=== PATIENT | male | born 1990 | race American Indian/Alaskan Native ===

== ENCOUNTER 2019-02-17 09:45 | Emergency (ER) | payer SELFPAY ==
[2019-02-17] MEDS ORDERED: dexAMETHasone 20 MG/5 ML VIAL IM ONE (12:39)
[2019-02-17] MEDS ORDERED: amLODIPine 5 MG TAB PO ONE (12:39)
[2019-02-17] MEDS ORDERED: KETOROLAC 60 MG/2 ML INJ IM ONE (12:39)
--- NOTE | 2019-02-17 12:47 | Emergency Department Report ---
ED Back Pain/Injury HPI - General Chief Complaint: Back Pain/Injury Stated Complaint: LOWER BACK PAIN Time Seen by Provider: 02/17/19 12:29 Source: patient Limitations: No Limitations - History of Present Illness Initial Comments: patient is a 28-year-old male presents emergency room with complaints of left lower back pain that began 2 nights ago. He states that he has been having back spasms. He denies any fall or injury. He denies any numbness, weakness, bowel or bladder incontinence, fever, vomiting. 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 He states that he used ibuprofen and ice pack with some relief. Patient states he has had back pain like this in the past. He states he has a past medical history of hypertension and hypothyroid. He denies any allergies medications. He states that he has not taken his medications in approximately 6 months. He states that he previously took lisinopril and hydrochlorothiazide but does not know the doses and states that he also took levothyroxine but does not know the dose of that either. - Related Data Previous Rx's Medication Instructions Recorded Last Taken Type Cyclobenzaprine [Flexeril] 10 mg PO QHS PRN #12 tablet 02/17/19 Unknown Rx Naproxen [EC-Naprosyn] 500 mg PO BID PRN #14 tablet. 02/17/19 Unknown Rx amLODIPine 10 mg PO DAILY #30 tab 02/17/19 Unknown Rx Allergies Allergy/AdvReac Type Severity Reaction Status Date / Time No Known Allergies Allergy Unverified 02/17/19 09:49 ED Review of Systems ROS: Stated complaint: LOWER BACK PAIN Other details as noted in HPI Comment: All other systems reviewed and negative ED Past Medical Hx - Past Medical History Previous Medical History?: Yes Additional medical history: Back pain - Surgical History Past Surgical History?: No - Social History Smoking Status: Never Smoker Substance Use Type: Alcohol - Medications Home Medications: Home Medications Medication Instructions Recorded Confirmed Last Taken Type Cyclobenzaprine [Flexeril] 10 mg PO QHS PRN #12 tablet 02/17/19 Unknown Rx Naproxen [EC-Naprosyn] 500 mg PO BID PRN #14 tablet. 02/17/19 Unknown Rx amLODIPine 10 mg PO DAILY #30 tab 02/17/19 Unknown Rx ED Physical Exam - General Limitations: No Limitations General appearance: alert, in no apparent distress - Head Head exam: Present: atraumatic, normocephalic - Eye Eye exam: Present: normal appearance - ENT ENT exam: Present: mucous membranes moist - Neck Neck exam: Present: normal inspection, full ROM. Absent: tenderness - Respiratory Respiratory exam: Present: normal lung sounds bilaterally. Absent: respiratory distress, wheezes, rales, rhonchi, stridor, chest wall tenderness, accessory mu scle use, decreased breath sounds, prolonged expiratory - Cardiovascular Cardiovascular Exam: Present: regular rate, normal rhythm, normal heart sounds. Absent: systolic murmur, diastolic murmur, rubs, gallop - Back Exam Back exam: Present: normal inspection, full ROM, paraspinal tenderness (left sided lumbar paraspinal muscular TTP, no mildine C-spine, T-spine or L-spine tenderness, no step offs, no deformities). Absent: vertebral tenderness - Neurological Exam Neurological exam: Present: alert, oriented X3, normal gait, other (equal honeycomb decapper strength, 5/5 strength in the BUE/BLE, sensation intact throughout, no focal neuro deficit). Absent: motor sensory deficit - Psychiatric Psychiatric exam: Present: normal affect, normal mood - Skin Skin exam: Present: warm, dry, intact ED Course Vital Signs 02/17/19 02/17/19 02/17/19 09:50 12:25 12:51 Temperature 97.9 F Pulse Rate 94 H 80 Respiratory 20 18 Rate Blood Pressure 178/117 149/106 Blood Pressure [Left] O2 Sat by Pulse 95 Oximetry 02/17/19 13:46 Temperature 98.0 F Pulse Rate 74 Respiratory 16 Rate Blood Pressure Blood Pressure 168/90 [Left] O2 Sat by Pulse 98 Oximetry ED Medical Decision Making - Lab Data Vital Signs 02/17/19 02/17/19 02/17/19 09:50 12:25 12:51 Temperature 97.9 F Pulse Rate 94 H 80 Respiratory 20 18 Rate Blood Pressure 178/117 149/106 Blood Pressure [Left] O2 Sat by Pulse 95 Oximetry 02/17/19 13:46 Temperature 98.0 F Pulse Rate 74 Respiratory 16 Rate Blood Pressure Blood Pressure 168/90 [Left] O2 Sat by Pulse 98 Oximetry - Medical Decision Making patient is a 28-year-old male presents emergency room with complaints of left lower back pain that began 2 nights ago. He states that he has been having back spasms. He denies any fall or injury. He denies any numbness, weakness, bowel or bladder incontinence, fever, vomiting. 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 He states that he used ibuprofen and ice pack with some relief. Patient states he has had back pain like this in the past. He states he has a past medical history of hypertension and hypothyroid. He denies any allergies medications. He states that he has not taken his medications in approximately 6 months. He states that he previously took lisinopril and hydrochlorothiazide but does not know the doses and states that he also took levothyroxine but does not know the dose of that either. vitals with elevated BP which improved upon amlodipine administration. on exam: left sided lumbar paraspinal muscular TTP, no mildine C-spine, T-spine or L-spine tenderness, no step offs, no deformities, no neuro deficits. Examination consistent with low back strain. Patient has no red flag warning signs of back pain including no trauma, no unexplained weight loss, no neuro deficits, age is not greater than 50, no fever, no IVDU, no steroid use, no hx of cancer. Patient given steroid injection and Toradol injection. Patient given 10 mg of amlodipine by mouth for his blood pressure. pt given prescription for naproxen, Flexeril, amlodipine. Advised patient to please take medication as prescribed. Do not drive or operate heavy machinery while taking muscle relaxer. May use ice pack, heating pad, rest, epsom salt bath. Follow-up with a primary care doctor in next 2-3 days. Please take your blood pressure 3 times a day and keep a blood pressure log and take this to the primary care doctor. Increase your water intake, eat a low-sodium diet, Incorporate daily exercise. Please have a full thyroid panel function done by a primary care physician to see if you need medication. Return to the emergency room for any new or worsening symptoms. - Differential Diagnosis strain, sprain, DDD, bulging disc, sciatica, piriformis syndrome Critical care attestation.: If time is entered above; I have spent that time in minutes in the direct care of this critically ill patient, excluding procedure time. ED Disposition Clinical Impression: Low back strain Qualifiers: Encounter type: initial encounter Qualified Code(s): S39.012A - Strain of muscle, fascia and tendon of lower back, initial encounter Hypertension Qualifiers: Hypertension type: essential hypertension Qualified Code(s): I10 - Essential (primary) hypertension Disposition: TO HOME OR SELFCARE Is pt being admited?: No Does the pt Need Aspirin: No Condition: Stable Instructions: Muscle Strain (ED), Hypertension (ED) Additional Instructions: please take medication as prescribed. Do not drive or operate heavy machinery while taking muscle relaxer. May use ice pack, heating pad, rest, epsom salt bath. Follow-up with a primary care doctor in next 2-3 days. Please take your blood pressure 3 times a day and keep a blood pressure log and take this to the primary care doctor. Increase your water intake, eat a low-sodium diet, Incorporate daily exercise. Please have a full thyroid panel function done by a primary care physician to see if you need medication. Return to the emergency room for any new or worsening symptoms. Prescriptions: Cyclobenzaprine [Flexeril] 10 mg PO QHS PRN #12 tablet PRN Reason: Muscle Spasm amLODIPine 10 mg PO DAILY #30 tab Naproxen [EC-Naprosyn] 500 mg PO BID PRN #14 tablet. PRN Reason: pain Referrals: BUTCH BIGGS MD [Staff Physician] - 2-3 Days [facility] [Outside] - 2-3 Days [facility] [Outside] - 2-3 Days Forms: Work/School Release Form(ED) Time of Disposition: 13:52 Print Language: LUX[place]
[2019-02-17 13:47] VITALS: BP 168/90
== END 2019-02-17 14:25 | disposition home or self-care (01) ==
LOC: ED 09:45
DX: S39.012A Strain of muscle, fascia and tendon of lower back, initial encounter (principal); I10 Essential (primary) hypertension; F10.10 Alcohol abuse, uncomplicated; Z79.899 Other long term (current) drug therapy; X50.0XXA Overexertion from strenuous movement or load, initial encounter; Y93.89 Activity, other specified; Y92.89 Other specified places as the place of occurrence of the external cause; Y99.8 Other external cause status
CPT/HCPCS: 96372; 99282; J1100; J1885